=== PATIENT | female | born 1965 | race Caucasian/White ===

== ENCOUNTER 2021-02-17 11:57 | Inpatient (IN) ==
[2021-02-17] MEDS ORDERED: *HR* OxyCODONE/APAP 5/325 TABLET PO ONE (16:18)
[2021-02-17 17:42] LABS: Basophils # 0.1 K/mcL (0.0-0.2); Basophils % 0.9 %; Eosinophils # 0.2 K/mcL (0.0-0.6); Eosinophils % 2.4 %; Hemoglobin 13.2 g/dL (11.5-15.4); Immature Granulocytes % 0.4 % (0-4); Lymphocytes # 1.7 K/mcL (0.6-4.6); Lymphocytes % 18.3 %; Mean Corpuscular HGB Conc 32.2 g/dL (31.6-35.5); Mean Corpuscular Hemoglobin 29.6 pg (28.0-33.3); Mean Corpuscular Volume 91.9 fL (83.0-100.0); Monocytes # 0.7 K/mcL (0.0-1.3); Monocytes % 7.6 %; Neutrophils # 6.7 K/mcL (1.6-8.9); Platelet Count 218 K/mcL (140-400); Red Blood Count 4.46 M/mcL (3.82-4.97); Red Cell Distribution Width 13.2 % (11.5-14.5); Segmented Neutrophils % 70.4 %; White Blood Count 9.5 K/mcL (4.3-11.1)
[2021-02-17] MEDS ORDERED: Acetaminophen 325 MG TABLET PO PRN (17:43)
[2021-02-17] MEDS ORDERED: Naloxone 0.4 MG/ML INJ IVP PRN (17:43)
[2021-02-17] MEDS ORDERED: *HR* HYDROcodone/Acet 5/325 mg TABLET PO PRN (17:43)
[2021-02-17] MEDS ORDERED: Melatonin 3 MG TABLET PO PRN (17:48)
[2021-02-17] MEDS ORDERED: hydrOXYzine pamoate 25 MG CAPSULE PO PRN (17:48)
[2021-02-17 17:55] LABS: BUN/Creatinine Ratio 12 (6-26); Blood Urea Nitrogen 11 mg/dL (6-20); Calcium 9.5 mg/dL (8.6-10.3); Carbon Dioxide 29 mEq/L (23-29); Chloride 102 mEq/L (98-107); Glucose 103 mg/dL (70-105); Osmolality,Calculated 286 (280-300); Potassium 3.7 mEq/L (3.5-5.1); Sodium 138 mEq/L (136-145); eGFR For African Americans > 60 (> 60); eGFR For Non-African Americans > 60 (> 60)
[2021-02-17 19:45] LABS: INR 1.9; Prothrombin Time 21.3 Seconds (9.4-12.1)
[2021-02-17 19:48] LABS: Activated Partial Thrombo Time 38.4 Seconds (26.0-36.0)
[2021-02-17] MEDS: Gabapentin 300 MG CAPSULE PO SCH (20:20)
[2021-02-17] MEDS: *HR* OxyCODONE Immed Rel 5 MG TABLET PO PRN (20:20)
[2021-02-17] MEDS: Baclofen 10 MG TABLET PO SCH (20:20)
[2021-02-17 21:05] LABS: BUN/Creatinine Ratio 13 (6-26); Blood Urea Nitrogen 12 mg/dL (6-20); Calcium 9.2 mg/dL (8.6-10.3); Carbon Dioxide 29 mEq/L (23-29); Chloride 103 mEq/L (98-107); Glucose 134 mg/dL (70-105); Osmolality,Calculated 288 (280-300); Potassium 3.9 mEq/L (3.5-5.1); Sodium 138 mEq/L (136-145); eGFR For African Americans > 60 (> 60); eGFR For Non-African Americans > 60 (> 60)
[2021-02-18] MEDS: *HR* HYDROmorphone 2 MG/ML SYRINGE IVP PRN ×3 (00:08→19:18)
[2021-02-18 03:43] LABS: Basophils # 0.1 K/mcL (0.0-0.2); Basophils % 0.8 %; Eosinophils # 0.2 K/mcL (0.0-0.6); Eosinophils % 2.7 %; Hematocrit 39.4 % (35.3-44.9); Hemoglobin 13.2 g/dL (11.5-15.4); Immature Granulocytes % 0.3 % (0-4); Lymphocytes # 2.3 K/mcL (0.6-4.6); Lymphocytes % 25.6 %; Mean Corpuscular HGB Conc 33.5 g/dL (31.6-35.5); Mean Corpuscular Volume 89.5 fL (83.0-100.0); Monocytes # 0.8 K/mcL (0.0-1.3); Monocytes % 9.1 %; Neutrophils # 5.5 K/mcL (1.6-8.9); Platelet Count 200 K/mcL (140-400); Red Cell Distribution Width 13.2 % (11.5-14.5); Segmented Neutrophils % 61.5 %
[2021-02-18] MEDS: *HR* OxyCODONE Immed Rel 5 MG TABLET PO PRN ×2 (03:44→14:01)
[2021-02-18 03:48] LABS: INR 1.8; Prothrombin Time 20.1 Seconds (9.4-12.1)
[2021-02-18] MEDS ORDERED: *HR* OxyCODONE Immed Rel 5 MG TABLET PO PRN (07:54)
[2021-02-18] MEDS ORDERED: Perflutren Lipid Microsphere 1.3 ML in 0.9 % Sodium Chloride 8.7 ML IVP PRN (08:35)
[2021-02-18] MEDS ORDERED: *HR* Heparin 5,000 UNIT/ML VIAL IVP ONE (08:45)
[2021-02-18] MEDS ORDERED: *HR* Heparin 5,000 UNIT/ML VIAL IVP PRN ×2 (08:45)
[2021-02-18] MEDS: Baclofen 10 MG TABLET PO SCH ×3 (09:21→21:00)
[2021-02-18] MEDS: Gabapentin 300 MG CAPSULE PO SCH ×3 (09:21→21:00)
[2021-02-18] MEDS: carvediloL 6.25 MG TABLET PO SCH ×2 (09:21→19:19)
[2021-02-18] MEDS: Heparin 25,000UNIT/250ML 1/2NS 25,000 UNIT/250 ML IV.SOLN IVC SCH (09:33)
[2021-02-18 11:11] LABS: Hematocrit 38.3 % (35.3-44.9); Hemoglobin 12.5 g/dL (11.5-15.4); Mean Corpuscular HGB Conc 32.6 g/dL (31.6-35.5); Mean Corpuscular Hemoglobin 29.5 pg (28.0-33.3); Mean Corpuscular Volume 90.3 fL (83.0-100.0); Mean Platelet Volume 10.8 fL (9.4-12.4); Platelet Count 202 K/mcL (140-400); Red Blood Count 4.24 M/mcL (3.82-4.97); Red Cell Distribution Width 13.2 % (11.5-14.5); White Blood Count 8.2 K/mcL (4.3-11.1)
[2021-02-18 11:14] LABS: INR 1.8; Prothrombin Time 20.3 Seconds (9.4-12.1)
[2021-02-18 11:18] LABS: Heparin anti-factor XA UFH 1.89 IU/mL (0.30-0.70)
[2021-02-18 16:55] LABS: INR 1.5; Prothrombin Time 17.4 Seconds (9.4-12.1)
[2021-02-18] MEDS: Furosemide 40 MG TABLET PO SCH (19:19)
[2021-02-18] MEDS: hydrOXYzine pamoate 25 MG CAPSULE PO SCH (21:00)
[2021-02-18] MEDS: (Buprenorphine Hcl/Naloxone Hcl [Suboxone 8 Mg-2 Mg S SL SCH (21:01)
[2021-02-18] MEDS: (Buprenorphine Hcl/Naloxone 8/2 MG SL) SL SCH (21:01)
[2021-02-19 01:43] LABS: Basophils # 0.1 K/mcL (0.0-0.2); Eosinophils # 0.3 K/mcL (0.0-0.6); Hematocrit 35.8 % (35.3-44.9); Hemoglobin 11.8 g/dL (11.5-15.4); Immature Granulocytes % 0.4 % (0-4); Lymphocytes # 3.2 K/mcL (0.6-4.6); Lymphocytes % 40.8 %; Mean Corpuscular Hemoglobin 30.3 pg (28.0-33.3); Mean Corpuscular Volume 91.8 fL (83.0-100.0); Mean Platelet Volume 10.7 fL (9.4-12.4); Monocytes # 0.7 K/mcL (0.0-1.3); Monocytes % 9.3 %; Neutrophils # 3.5 K/mcL (1.6-8.9); Platelet Count 185 K/mcL (140-400); Red Cell Distribution Width 13.4 % (11.5-14.5); Segmented Neutrophils % 44.5 %; White Blood Count 7.8 K/mcL (4.3-11.1)
[2021-02-19 01:56] LABS: Heparin anti-factor XA UFH 0.5 IU/mL (0.30-0.70)
[2021-02-19 01:57] LABS: INR 1.4; Prothrombin Time 16.5 Seconds (9.4-12.1)
[2021-02-19 02:00] LABS: BUN/Creatinine Ratio 18 (6-26); Blood Urea Nitrogen 15 mg/dL (6-20); Calcium 8.9 mg/dL (8.6-10.3); Carbon Dioxide 28 mEq/L (23-29); Chloride 105 mEq/L (98-107); Glucose 121 mg/dL (70-105); Osmolality,Calculated 286 (280-300); Potassium 3.9 mEq/L (3.5-5.1); Sodium 137 mEq/L (136-145); eGFR For African Americans > 60 (> 60); eGFR For Non-African Americans > 60 (> 60)
[2021-02-19] MEDS: *HR* HYDROmorphone 2 MG/ML SYRINGE IVP PRN ×3 (06:56→23:49)
[2021-02-19] MEDS ORDERED: Fluticasone Propionate Nasal 50 MCG/SPRAY BOTTLE NS SCH (09:00)
[2021-02-19] MEDS: (Buprenorphine Hcl/Naloxone Hcl [Suboxone 8 Mg-2 Mg S SL SCH (09:07)
[2021-02-19] MEDS: (Buprenorphine Hcl/Naloxone 8/2 MG SL) SL SCH ×2 (09:07→23:12)
[2021-02-19] MEDS: Furosemide 40 MG TABLET PO SCH (09:14)
[2021-02-19] MEDS: hydrOXYzine pamoate 25 MG CAPSULE PO SCH ×2 (09:14→23:12)
[2021-02-19] MEDS: Gabapentin 300 MG CAPSULE PO SCH ×2 (09:14→23:11)
[2021-02-19] MEDS: carvediloL 6.25 MG TABLET PO SCH (09:14)
[2021-02-19] MEDS: Baclofen 10 MG TABLET PO SCH ×2 (09:15→23:11)
[2021-02-19] MEDS ORDERED: *HR* Midazolam HCl 2 MG/2 ML VIAL ONE (12:28)
[2021-02-19] MEDS ORDERED: *HR* FentaNYL (PF) 100 MCG/2 ML VIAL ONE (12:28)
[2021-02-19] MEDS ORDERED: Lidocaine -MPF 2% 2 ML VIAL ONE (12:28)
[2021-02-19] MEDS ORDERED: Vancomycin 1,000 MG VIAL ONE (12:34)
[2021-02-19] MEDS ORDERED: Dexmedetomidine HCl 400 MCG/100 ML MLS IVC ONE (12:55)
[2021-02-19] MEDS ORDERED: Acetaminophen IV 1,000 MG/100 ML BAG IVPB ONE (12:56)
[2021-02-19] MEDS ORDERED: *HR* Propofol 200 MG/20 ML VIAL IVP ONE (12:59)
[2021-02-19] MEDS ORDERED: Ondansetron 4 MG/2 ML VIAL ONE (13:00)
[2021-02-19] MEDS ORDERED: *HR* Rocuronium Bromide 50 MG/5 ML VIAL ONE ×2 (13:00→15:19)
[2021-02-19] MEDS ORDERED: *HR* Succinylcholine 200 MG/10 ML VIAL IVP ONE (13:02)
[2021-02-19] MEDS ORDERED: Ketorolac 30 MG/ML VIAL IVP PRN ×2 (13:05→19:15)
[2021-02-19] MEDS ORDERED: *HR* HYDROmorphone PF 0.5 MG/0.5 ML SYRINGE IVP PRN (13:05)
[2021-02-19] MEDS ORDERED: Ondansetron 4 MG/2 ML VIAL IVP PRN ×2 (13:05→19:43)
[2021-02-19] MEDS ORDERED: *HR* OxyCODONE Immed Rel 5 MG TABLET PO PRN ×3 (13:05→19:43)
[2021-02-19] MEDS ORDERED: Ringers Solution, Lactated 1,000 ML IVC SCH (13:15)
[2021-02-19] MEDS ORDERED: *HR* Magnesium Sulfate 1 GM/2 ML VIAL ONE (14:00)
[2021-02-19] MEDS ORDERED: *HR* Labetalol 20 MG/4 ML SYRINGE IVP ONE (14:20)
[2021-02-19] MEDS ORDERED: Albumin Human 5% 12.5 GM/250 ML IV.SOLN ONE ×2 (15:00→15:25)
[2021-02-19] MEDS ORDERED: Sugammadex Sodium 200 MG/2 ML VIAL IV ONE (17:22)
[2021-02-19] MEDS ORDERED: Povidone-Iodine 45 ML, Sodium Chloride IRRigation 1,000 ML IR ONE ×2 (17:30→19:43)
[2021-02-19] MEDS ORDERED: TOTAL JOINT MIXTURE (100ML) INTRAART ONE (17:30)
[2021-02-19] MEDS ORDERED: *HR* LORazepam 2 MG/ML VIAL IVP ONE (19:40)
[2021-02-19] MEDS ORDERED: Melatonin 3 MG TABLET PO PRN (19:43)
[2021-02-19] MEDS ORDERED: Sennosides 8.6 MG TABLET PO PRN (19:43)
[2021-02-19] MEDS ORDERED: hydrOXYzine pamoate 25 MG CAPSULE PO PRN (19:43)
[2021-02-19] MEDS ORDERED: MOM Conc 10 ML UD.LIQ PO PRN (19:43)
[2021-02-19] MEDS ORDERED: *HR* Heparin 5,000 UNIT/ML VIAL IVP PRN ×2 (19:43)
[2021-02-19] MEDS ORDERED: Ropivacaine/PF 0.5% 49.24 ML, EPINEPHrine 0.5 MG, cloNIDine 0.08 MG, Ketorolac 30 MG, 0... INTRAART ONE (19:43)
[2021-02-19] MEDS ORDERED: Acetaminophen 325 MG TABLET PO PRN (19:43)
[2021-02-19] MEDS ORDERED: Perflutren Lipid Microsphere 1.3 ML in 0.9 % Sodium Chloride 8.7 ML IVP PRN (19:43)
[2021-02-19] MEDS ORDERED: Naloxone 0.4 MG/ML INJ IVP PRN ×2 (19:43)
[2021-02-19] MEDS ORDERED: *HR* Promethazine 25 MG/ML VIAL IM PRN (19:43)
[2021-02-19] MEDS ORDERED: Patient Taking Own Medication 1 EACH SL SCH (21:00)
[2021-02-19] MEDS: CeFAZolin 2 GM/120 ML BAG IVPB SCH (23:49)
[2021-02-20] MEDS: *HR* OxyCODONE Immed Rel 5 MG TABLET PO PRN ×3 (00:37→14:09)
[2021-02-20 03:17] LABS: Basophils % 0.2 %; Eosinophils % 0.1 %; Hematocrit 32.9 % (35.3-44.9); Hemoglobin 10.6 g/dL (11.5-15.4); Immature Granulocytes % 0.4 % (0-4); Lymphocytes # 0.9 K/mcL (0.6-4.6); Lymphocytes % 7.7 %; Mean Corpuscular HGB Conc 32.2 g/dL (31.6-35.5); Mean Corpuscular Hemoglobin 29.3 pg (28.0-33.3); Mean Corpuscular Volume 90.9 fL (83.0-100.0); Mean Platelet Volume 10.9 fL (9.4-12.4); Monocytes # 0.6 K/mcL (0.0-1.3); Monocytes % 5.3 %; Platelet Count 195 K/mcL (140-400); Red Blood Count 3.62 M/mcL (3.82-4.97); Red Cell Distribution Width 12.9 % (11.5-14.5); Segmented Neutrophils % 86.3 %; White Blood Count 11.5 K/mcL (4.3-11.1)
[2021-02-20 03:47] LABS: BUN/Creatinine Ratio 19 (6-26); Blood Urea Nitrogen 16 mg/dL (6-20); Carbon Dioxide 26 mEq/L (23-29); Chloride 104 mEq/L (98-107); Glucose 143 mg/dL (70-105); Osmolality,Calculated 290 (280-300); Sodium 138 mEq/L (136-145); eGFR For African Americans > 60 (> 60); eGFR For Non-African Americans > 60 (> 60)
[2021-02-20] MEDS: *HR* HYDROmorphone 2 MG/ML SYRINGE IVP PRN ×3 (03:47→17:24)
[2021-02-20] MEDS: Ringers Solution, Lactated 1,000 ML IVC SCH ×3 (07:48→23:19)
[2021-02-20] MEDS: Heparin 25,000UNIT/250ML 1/2NS 25,000 UNIT/250 ML IV.SOLN IVC SCH ×3 (07:48→10:58)
[2021-02-20] MEDS: carvediloL 6.25 MG TABLET PO SCH ×3 (07:49→17:25)
[2021-02-20] MEDS: Furosemide 40 MG TABLET PO SCH ×3 (07:49→17:25)
[2021-02-20] MEDS: Baclofen 10 MG TABLET PO SCH ×4 (07:50→23:17)
[2021-02-20] MEDS: Gabapentin 300 MG CAPSULE PO SCH ×4 (07:50→23:17)
[2021-02-20] MEDS: hydrOXYzine pamoate 25 MG CAPSULE PO SCH ×2 (09:01→23:17)
[2021-02-20] MEDS: Multivit/Ca/Min/Fe/FA 1 TAB TABLET PO SCH (09:01)
[2021-02-20] MEDS: Ascorbic Acid 500 MG TABLET PO SCH ×2 (09:02→17:25)
[2021-02-20] MEDS: CeFAZolin 2 GM/120 ML BAG IVPB SCH ×3 (09:02→23:27)
[2021-02-20] MEDS: (Buprenorphine Hcl/Naloxone 8/2 MG SL) SL SCH ×2 (09:11→20:58)
[2021-02-20] MEDS: Fluticasone Propionate Nasal 50 MCG/SPRAY BOTTLE NS SCH (09:11)
[2021-02-20] MEDS: Ketorolac 30 MG/ML VIAL IVP PRN (23:26)
[2021-02-21] MEDS: Heparin 25,000UNIT/250ML 1/2NS 25,000 UNIT/250 ML IV.SOLN IVC SCH (03:02)
[2021-02-21] MEDS: Ketorolac 30 MG/ML VIAL IVP PRN ×3 (05:33→23:23)
[2021-02-21 05:46] LABS: Basophils % 0.4 %; Eosinophils # 0.4 K/mcL (0.0-0.6); Eosinophils % 3.9 %; Hematocrit 27.7 % (35.3-44.9); Hemoglobin 9.4 g/dL (11.5-15.4); Immature Granulocytes % 0.3 % (0-4); Lymphocytes # 2.5 K/mcL (0.6-4.6); Lymphocytes % 24.5 %; Mean Corpuscular HGB Conc 33.9 g/dL (31.6-35.5); Mean Corpuscular Volume 91.4 fL (83.0-100.0); Monocytes % 9.6 %; Neutrophils # 6.3 K/mcL (1.6-8.9); Platelet Count 183 K/mcL (140-400); Red Blood Count 3.03 M/mcL (3.82-4.97); Red Cell Distribution Width 13.2 % (11.5-14.5); Segmented Neutrophils % 61.3 %; White Blood Count 10.2 K/mcL (4.3-11.1)
[2021-02-21 06:06] LABS: BUN/Creatinine Ratio 24 (6-26); Blood Urea Nitrogen 22 mg/dL (6-20); Calcium 8.8 mg/dL (8.6-10.3); Carbon Dioxide 25 mEq/L (23-29); Chloride 104 mEq/L (98-107); Glucose 115 mg/dL (70-105); Osmolality,Calculated 290 (280-300); Potassium 3.9 mEq/L (3.5-5.1); Sodium 138 mEq/L (136-145); eGFR For African Americans > 60 (> 60); eGFR For Non-African Americans > 60 (> 60)
[2021-02-21] MEDS: Ascorbic Acid 500 MG TABLET PO SCH ×2 (08:51→16:22)
[2021-02-21] MEDS: Multivit/Ca/Min/Fe/FA 1 TAB TABLET PO SCH (08:51)
[2021-02-21] MEDS: Gabapentin 300 MG CAPSULE PO SCH ×3 (08:51→21:34)
[2021-02-21] MEDS: hydrOXYzine pamoate 25 MG CAPSULE PO SCH ×2 (08:52→21:34)
[2021-02-21] MEDS: Furosemide 40 MG TABLET PO SCH ×2 (08:52→16:23)
[2021-02-21] MEDS: Baclofen 10 MG TABLET PO SCH ×3 (08:52→21:35)
[2021-02-21] MEDS: carvediloL 6.25 MG TABLET PO SCH ×2 (08:53→16:25)
[2021-02-21] MEDS: Fluticasone Propionate Nasal 50 MCG/SPRAY BOTTLE NS SCH (08:54)
[2021-02-21] MEDS: (Buprenorphine Hcl/Naloxone 8/2 MG SL) SL SCH ×2 (08:54→21:35)
[2021-02-21] MEDS: CeFAZolin 2 GM/120 ML BAG IVPB SCH ×3 (08:58→23:23)
[2021-02-21 10:34] LABS: INR 2.1; Prothrombin Time 24.1 Seconds (9.4-12.1)
[2021-02-21] MEDS ORDERED: Warfarin perPT PO PRN (18:00)
[2021-02-21] MEDS ORDERED: *HR* Warfarin 5 MG TABLET PO ONE (18:00)
[2021-02-22 02:04] LABS: Basophils # 0.1 K/mcL (0.0-0.2); Basophils % 0.5 %; Eosinophils # 0.5 K/mcL (0.0-0.6); Eosinophils % 4.7 %; Hematocrit 24.4 % (35.3-44.9); Immature Granulocytes % 0.7 % (0-4); Lymphocytes # 2.6 K/mcL (0.6-4.6); Lymphocytes % 26.8 %; Mean Corpuscular HGB Conc 32.8 g/dL (31.6-35.5); Mean Corpuscular Hemoglobin 30.1 pg (28.0-33.3); Mean Corpuscular Volume 91.7 fL (83.0-100.0); Mean Platelet Volume 10.8 fL (9.4-12.4); Monocytes % 10.6 %; Neutrophils # 5.6 K/mcL (1.6-8.9); Platelet Count 192 K/mcL (140-400); Red Blood Count 2.66 M/mcL (3.82-4.97); Red Cell Distribution Width 13.5 % (11.5-14.5); Segmented Neutrophils % 56.7 %; White Blood Count 9.8 K/mcL (4.3-11.1)
[2021-02-22 02:22] LABS: INR 2.3
[2021-02-22 02:24] LABS: BUN/Creatinine Ratio 23 (6-26); Blood Urea Nitrogen 18 mg/dL (6-20); Calcium 8.3 mg/dL (8.6-10.3); Carbon Dioxide 28 mEq/L (23-29); Chloride 105 mEq/L (98-107); Glucose 114 mg/dL (70-105); Osmolality,Calculated 291 (280-300); Potassium 3.3 mEq/L (3.5-5.1); Sodium 139 mEq/L (136-145); eGFR For African Americans > 60 (> 60); eGFR For Non-African Americans > 60 (> 60)
[2021-02-22] MEDS: Ketorolac 30 MG/ML VIAL IVP PRN ×2 (05:14→13:48)
[2021-02-22] MEDS: carvediloL 6.25 MG TABLET PO SCH ×2 (10:18→17:57)
[2021-02-22] MEDS: Ascorbic Acid 500 MG TABLET PO SCH ×2 (10:18→17:56)
[2021-02-22] MEDS: Gabapentin 300 MG CAPSULE PO SCH ×3 (10:18→20:57)
[2021-02-22] MEDS: Multivit/Ca/Min/Fe/FA 1 TAB TABLET PO SCH (10:18)
[2021-02-22] MEDS: hydrOXYzine pamoate 25 MG CAPSULE PO SCH ×2 (10:18→20:57)
[2021-02-22] MEDS: Baclofen 10 MG TABLET PO SCH ×3 (10:18→20:56)
[2021-02-22] MEDS: Furosemide 40 MG TABLET PO SCH ×2 (10:18→17:57)
[2021-02-22] MEDS: CeFAZolin 2 GM/120 ML BAG IVPB SCH ×2 (10:20→17:52)
[2021-02-22] MEDS: Fluticasone Propionate Nasal 50 MCG/SPRAY BOTTLE NS SCH (10:22)
[2021-02-22] MEDS: (Buprenorphine Hcl/Naloxone 8/2 MG SL) SL SCH ×2 (10:22→20:58)
[2021-02-22] MEDS ORDERED: *HR* Warfarin 5 MG TABLET PO ONE (18:00)
[2021-02-23] MEDS: CeFAZolin 2 GM/120 ML BAG IVPB SCH ×4 (00:16→23:59)
[2021-02-23] MEDS: Ketorolac 30 MG/ML VIAL IVP PRN (00:24)
[2021-02-23 01:13] LABS: Basophils # 0.1 K/mcL (0.0-0.2); Basophils % 0.6 %; Eosinophils # 0.6 K/mcL (0.0-0.6); Eosinophils % 5.8 %; Hematocrit 26.1 % (35.3-44.9); Hemoglobin 8.5 g/dL (11.5-15.4); Immature Granulocytes % 0.5 % (0-4); Lymphocytes # 2.8 K/mcL (0.6-4.6); Lymphocytes % 26.2 %; Mean Corpuscular HGB Conc 32.6 g/dL (31.6-35.5); Mean Corpuscular Hemoglobin 29.9 pg (28.0-33.3); Mean Corpuscular Volume 91.9 fL (83.0-100.0); Mean Platelet Volume 10.9 fL (9.4-12.4); Monocytes % 9.6 %; Neutrophils # 6.1 K/mcL (1.6-8.9); Platelet Count 221 K/mcL (140-400); Red Blood Count 2.84 M/mcL (3.82-4.97); Red Cell Distribution Width 13.7 % (11.5-14.5); Segmented Neutrophils % 57.3 %; White Blood Count 10.6 K/mcL (4.3-11.1)
[2021-02-23 01:21] LABS: Prothrombin Time 22.7 Seconds (9.4-12.1)
[2021-02-23 01:31] LABS: BUN/Creatinine Ratio 25 (6-26); Blood Urea Nitrogen 20 mg/dL (6-20); Calcium 8.9 mg/dL (8.6-10.3); Carbon Dioxide 28 mEq/L (23-29); Chloride 106 mEq/L (98-107); Glucose 103 mg/dL (70-105); Osmolality,Calculated 295 (280-300); Sodium 141 mEq/L (136-145); eGFR For African Americans > 60 (> 60); eGFR For Non-African Americans > 60 (> 60)
[2021-02-23] MEDS: Furosemide 40 MG TABLET PO SCH ×2 (09:01→16:02)
[2021-02-23] MEDS: Gabapentin 300 MG CAPSULE PO SCH ×3 (09:01→21:59)
[2021-02-23] MEDS: carvediloL 6.25 MG TABLET PO SCH ×2 (09:01→16:02)
[2021-02-23] MEDS: Multivit/Ca/Min/Fe/FA 1 TAB TABLET PO SCH (09:01)
[2021-02-23] MEDS: Ascorbic Acid 500 MG TABLET PO SCH ×2 (09:01→16:02)
[2021-02-23] MEDS: (Buprenorphine Hcl/Naloxone 8/2 MG SL) SL SCH ×2 (09:04→22:00)
[2021-02-23] MEDS: Fluticasone Propionate Nasal 50 MCG/SPRAY BOTTLE NS SCH (09:06)
[2021-02-23] MEDS: Baclofen 10 MG TABLET PO SCH ×3 (11:12→22:00)
[2021-02-23] MEDS: hydrOXYzine pamoate 25 MG CAPSULE PO SCH ×2 (11:12→22:00)
[2021-02-23] MEDS ORDERED: *HR* Warfarin 7.5 MG TABLET PO ONE (18:00)
[2021-02-24 06:01] LABS: Basophils # 0.1 K/mcL (0.0-0.2); Basophils % 0.7 %; Eosinophils # 0.7 K/mcL (0.0-0.6); Eosinophils % 6.7 %; Hematocrit 25.9 % (35.3-44.9); Hemoglobin 8.3 g/dL (11.5-15.4); Immature Granulocytes % 0.7 % (0-4); Lymphocytes % 29.3 %; Mean Corpuscular Hemoglobin 29.9 pg (28.0-33.3); Mean Corpuscular Volume 93.2 fL (83.0-100.0); Mean Platelet Volume 10.7 fL (9.4-12.4); Monocytes # 0.9 K/mcL (0.0-1.3); Monocytes % 9.2 %; Neutrophils # 5.4 K/mcL (1.6-8.9); Platelet Count 263 K/mcL (140-400); Red Blood Count 2.78 M/mcL (3.82-4.97); Red Cell Distribution Width 13.7 % (11.5-14.5); Segmented Neutrophils % 53.4 %; White Blood Count 10.2 K/mcL (4.3-11.1)
[2021-02-24 06:14] LABS: INR 2.4; Prothrombin Time 27.2 Seconds (9.4-12.1)
[2021-02-24 06:38] VITALS: BP 127/75
[2021-02-24] MEDS: CeFAZolin 2 GM/120 ML BAG IVPB SCH ×2 (08:57→18:28)
[2021-02-24] MEDS: Gabapentin 300 MG CAPSULE PO SCH ×2 (08:58→16:11)
[2021-02-24] MEDS: carvediloL 6.25 MG TABLET PO SCH ×2 (08:58→16:11)
[2021-02-24] MEDS: Furosemide 40 MG TABLET PO SCH ×2 (08:58→16:11)
[2021-02-24] MEDS: Multivit/Ca/Min/Fe/FA 1 TAB TABLET PO SCH (08:58)
[2021-02-24] MEDS: Ascorbic Acid 500 MG TABLET PO SCH ×2 (08:58→16:11)
[2021-02-24] MEDS: Baclofen 10 MG TABLET PO SCH ×2 (08:59→16:12)
[2021-02-24] MEDS: (Buprenorphine Hcl/Naloxone 8/2 MG SL) SL SCH (08:59)
[2021-02-24] MEDS: hydrOXYzine pamoate 25 MG CAPSULE PO SCH (08:59)
[2021-02-24] MEDS: Fluticasone Propionate Nasal 50 MCG/SPRAY BOTTLE NS SCH (08:59)
[2021-02-24] MEDS ORDERED: *HR* Warfarin 5 MG TABLET PO ONE (18:00)
== END 2021-02-24 18:50 | disposition home health service (06) | DRG 522 ==
LOC: CDU 11:57 → EMEROOARM 11:57 → CDU 17:28 → 3NENU 17:31 → SUATTDRO 18:42
PROVIDERS: ADMIT Internal Medicine; ATTEND Family Medicine